=== PATIENT | female | born 1995 | race Caucasian/White ===

== ENCOUNTER 2021-04-23 17:26 | Observation (INO) | payer OTHER, SELFPAY ==
[2021-04-23] VITALS (7 sets, daily range): BP systolic 114–131; BP diastolic 69–80; PULSE 83–102; TEMP 36.3; BMI 34.9
--- NOTE | 2021-04-24 20:36 | PM.OBTRLD ---
OB - Triage/Final Diagnosis Visit Information Comments/Additional reasons for admission: I have assessed the risk for this patient, Rachana James, and determined that she would benefit from observation care. Final Diagnosis (1) False labor after 37 completed weeks of gestation: Code(s): O47.1 - False labor at or after 37 completed weeks of gestation Status: Acute
== END 2021-04-23 20:10 | disposition home or self-care (01) ==
PROVIDERS: Admitting Provider Obstetrics & Gynecology; Visit Provider Obstetrics & Gynecology
DX: O47.1 False labor at or after 37 completed weeks of gestation (principal); Z3A.38 38 weeks gestation of pregnancy
CPT/HCPCS: G0378; G0379

== ENCOUNTER 2021-04-26 19:30 | Inpatient (IN) | payer OTHER, SELFPAY ==
[2021-04-26] VITALS (8 sets, daily range): BP systolic 111–128; BP diastolic 55–87; PULSE 85–107; BMI 35.7
--- NOTE | 2021-04-26 19:30 | LDADM ---
This patient, Rachana James, was admitted to Labor/Delivery/Recovery 103 on 04/26/21 at 19:30. Plans for labor, pain management and were discussed with patient. Patient/family oriented to hospital policies and general routines including ID bracelet, bed and alarms, visiting hours, pain management, procedures, bathroom and other care routines, personal items, smoking policy, room service/diet and guest tray routines, infant security routines, and visiting hours. Patient/Family are encouraged to report perceived risks to care and to ask questions if they do not understand what they are told or what they should do. See OBIX for further documentation.
--- NOTE | 2021-04-26 20:50 | PM.IMHP ---
H&P: HPI History of Present Illness Date/Time: 04/26/21 20:41 Rachana is a 25yo @ 38.4wks (LATONIA 05[birth year]) who presented to clinic for routine care. She had been seen on L&D on 04/23/21 for rule out labor was found to be 2cm. In clinic, she was having decreased movement with regular contractions. She was 2/100/-2. No LOF, but had been having some vaginal spotting. On arrival to L&D, she was found to be 3.5/100/-2. Baby has good reactivity but was noted to have a couple variables and late decelerations. Her is complicated by: - Postural orthostatic tachycardia syndrome - Elevated glucola; normal 3hr OGTT - CMV non-immune - Mild anemia on iron daily Chief Complaint: contractions; decreased movement Review of Systems Review of Systems: All systems reviewed & are unremarkable except as noted in HPI and below (HPI) [facility] Family History Family History Mother Heart disease Breast cancer Father Heart disease Social History Social History Substance use: never Spiritual care concerns: No Meds Home Medications and Allergies Home Medications Medication Instructions Recorded Confirmed Type PNV cmb#95-ferrous fumarate-FA 1 tablet PO DAILY 04/17/21 04/17/21 History [] ferrous sulfate [Iron (ferrous 325 mg PO DAILY 04/17/21 04/17/21 History sulfate)] Allergies Allergy/AdvReac Type Severity Reaction Status Date / Time No Known Allergies Allergy Unknown Unverified 04/13/19 17:26 Exam Const: General: cooperative, healthy appearing, comfortable and no acute distress Resp: Effort & Inspection: normal respiratory effort Cardio: Rate: regular rate GI: Inspection: non-distended GI Palp: No abdominal tenderness and Yes Soft to palpation : Other: FHT's: 130's/mod giorgio/ + accels/ occasional variable/late decel -- cat 2, overall reassuring TOCO: ctx's q 1-4min Cervix: 3.5/100/-2 Membranes: intact Presentation: cephalic Skin: General skin exam: normal color Neuro: General: patient oriented x3 Psych: Appearance: grossly normal Affect: normal affect Attitude: cooperative Assessment and Plan Assessment and plan (1) Active labor at term: Status: Acute Additional Plan - Admit to L&D for labor - Continuous monitoring; currently reassuring - Actively theresa currently; if contractions space out, will start low dose pitocin - Plan for AROM in AM - Anesthesia consult PRN pain - GBS negative
--- NOTE | 2021-04-26 20:50 | WPDHPUPDATE1 ---
History and Physical Update Update Date/Time: 04/26/21 20:50 History and Physical has been reviewed, including an updated exam of the patient. There are NO changes in the patient's condition. Risks, benefits, and alternatives have been discussed and questions answered. Patient agrees to proceed with procedure.
[2021-04-26 21:06] LABS: Basophils Percent Auto 0.3 % (0.2-1.2); Eosinophils Absolute Auto 0.1 K/mm3 (0-0.3); Eosinophils Percent Auto 0.5 % (0-4.4); Hematocrit 36.6 % (37.0-47.0); Hemoglobin 12.5 g/dL (12.0-15.0); Immature Granulocyte Absolute 0.06 K/mm3 (0.00-0.031); Immature Granulocyte Percent A 0.5 % (0-0.5); Lymphocytes Absolute Auto 1.93 K/mm3 (0.9-3.2); Lymphocytes Percent Auto 16.9 % (18.3-44.2); Mean Corpuscular HGB Conc 34.2 g/dl (32-36); Mean Corpuscular Hemoglobin 29.3 pg (26-34); Mean Corpuscular Volume 85.9 fl (80-100); Mean Platelet Volume 12.3 fl (7.4-10.4); Monocytes Absolute Auto 0.9 K/mm3 (0.1-0.6); Monocytes Percent Auto 7.5 % (2.6-8.5); Neutrophils Absolute Auto 8.5 K/mm3 (1.3-6.7); Neutrophils Percent Auto 74.3 % (45.5-73.1); Platelet Count Result 159 k/mm3 (150-375); Red Blood Count 4.26 M/mm3 (4.2-5.4); Red Cell Distribution Width 14.1 % (11.5-14.5); White Blood Count 11.5 K/mm3 (4.5-10.0)
[2021-04-27] VITALS (141 sets, daily range): BP systolic 80–151; BP diastolic 30–129; PULSE 32–141; RESP 16–81; TEMP 36.2–36.8; O2SAT 77–100
[2021-04-27] MEDS: OXYTOCIN 30 UNITS/NS 500 ML 30 UNITS/500 ML BAG IV CONT (03:45)
[2021-04-27] MEDS: LACTATED RINGERS 1,000 ML 125 ML IV CONT ×2 (03:45→05:17)
--- NOTE | 2021-04-27 04:36 | WPDANESEPPF ---
Anes - Initial Pre Proc Eval Procedure: labor epidural Date/Time: 04/27/21 04:36 Surgeon: Viky Mason MD Pre Op Diagnosis: labor pain Pre Op Diagnosis: Contractions Patient Data Age: 25 Gender: F Height: 1.7 m Weight: 103.6 kg Last Vital Signs Temp 36.8 C 04/27/21 03:09 Pulse 76 04/27/21 04:31 Resp 16 04/27/21 03:09 BP 118/70 04/27/21 04:31 Allergies Allergy/AdvReac Type Severity Reaction Status Date / Time No Known Allergies Allergy Unknown Unverified 04/13/19 17:26 Home Medications Medication Instructions Recorded Confirmed Type PNV cmb#95-ferrous fumarate-FA 1 tablet PO DAILY 04/17/21 04/17/21 History [] ferrous sulfate [Iron (ferrous 325 mg PO DAILY 04/17/21 04/17/21 History sulfate)] Laboratory Tests 04/26/21 04/26/21 04/26/21 20:52 20:52 20:52 WBC 11.5 K/mm3 H K/mm3 (4.5-10.0) RBC 4.26 M/mm3 M/mm3 (4.2-5.4) Hgb 12.5 g/dL g/dL (12.0-15.0) Hct 36.6 % L % (37.0-47.0) MCV 85.9 fl fl (80-100) MCH 29.3 pg pg (26-34) MCHC 34.2 g/dl g/dl (32-36) RDW 14.1 % % (11.5-14.5) Plt Count 159 k/mm3 k/mm3 (150-375) MPV 12.3 fl H fl (7.4-10.4) Immature Gran % (Auto) 0.5 % % (0-0.5) Neut % (Auto) 74.3 % H % (45.5-73.1) Lymph % (Auto) 16.9 % L % (18.3-44.2) [place] % (Auto) 7.5 % % (2.6-8.5) Eos % (Auto) 0.5 % % (0-4.4) Baso % (Auto) 0.3 % % (0.2-1.2) Lymph # (Auto) 1.93 K/mm3 K/mm3 (0.9-3.2) [place] # (Auto) 0.9 K/mm3 H K/mm3 (0.1-0.6) Eos # (Auto) 0.1 K/mm3 K/mm3 (0-0.3) Baso # (Auto) 0.0 K/mm3 K/mm3 (0.0-0.1) Abs Immat Gran (auto) 0.06 K/mm3 H K/mm3 (0.00-0.031) Absolute Neuts (auto) 8.5 K/mm3 H K/mm3 (1.3-6.7) Absolute Nucleated RBC 0.0 K/mm3 K/mm3 (0.0-0.012) Nucleated RBC % 0.0 % % (0.0-0.2) RPR Pending Blood Type O Positive Antibody Screen Negative Patient hx anesthesia problems: none Family hx anesthesia problems: none Results Review: All pre-operative results and documents have been reviewed as part of the pre-operative evaluation. [facility] Past Medical History Medical History (Updated 04/27/21 @ 04:37 by Chaitanya Castillo DO) POTS (postural orthostatic tachycardia syndrome) Family History Family History Mother Heart disease Breast cancer Father Heart disease Social History Social History Smoking status: Former smoker Substance use: never Spiritual care concerns: No Anes - Eval Final PreProcedure Day of Procedure 04/27/21 04:36 Patient weight: obese ASA classification: III Anesthesia type and monitoring: regional epidural and standard monitoring Results Review: All pre-operative results and documents have been reviewed as part of the pre-operative evaluation. Informed Consent: The patient's anesthetic plan and its attendant risks and benefits were discussed with the patient/family/POA. Questions were solicited and answers provided to the satisfaction of the patient/family/POA.
--- NOTE | 2021-04-27 07:14 | PM.OBPNLAB ---
Pain Control Date/time seen: 04/27/21 07:14 Pain control: epidural Pelvic Exam Dilation (cm): 4 Effacement (%): 100 station: -2 Amniotic membrane status: Ruptured (AROM, clear 0710 (possible SROM 0418)) Contractions Monitor mode: Internal (placed this exam) Contraction frequency: 3 Contraction pattern: Regular Status status: Category ll Comments: variables Assessment and Plan Pitocin rate (mU/min): 6 Assessment: induction ongoing Plan: continuous present management Comments: amnio infusion if variables continue
[2021-04-27] MEDS: SODIUM CHLORIDE 0.9% IV 300 ML 600 ML I-UTERINE (07:48)
--- NOTE | 2021-04-27 08:54 | P.PCNOB_ITS ---
OB - Delivery Note Procedure Delivery date: 04/27/21 Intrapartal events: Deceleration Delivery augmentation: rupture of membranes and pitocin Delivery monitor: external FHT and internal uterine Route of delivery: Laceration Description: None Quantitative Blood Loss (ml): 250 Anesthesia type: Epidural Disposition: floor [place] Baby Date of : 04/27/21 Time of : 08:44 Weeks of gestation at delivery: 38 (.5) Infant gender: Male Weight (pounds): 7 Weight (ounces): 9 presentation: vertex position: Right Occiput Anterior Placenta delivery description: Expressed cord vessel description: 3 Vessels, Nuchal Cord and Delayed Cord Clamping score one minute: 8 score five minutes: 9 Narrative: Rachana rapidly progressed from 4 to complete dilation in less than an hour. Tachysystole and significant variable decelerations were noted. We placed oxygen and put her on her right side and began pushing, baby tolerated it well. With good maternal effort she pushed for approximately 40 minutes. She delivered the head over intact perineum. A nuchal cord was noted but delivered through. The infant's shoulders and body were delivered without complications. The infant had spontaneous cry and was immediately placed skin to skin. Delayed cord clamping was performed. The umbilical cord was then clamped and cut. With Pitocin running and gentle downward traction on the cord, the placenta delivered without complications. Bimanual massage was performed and good tone with minimal bleeding was noted. The patient was examined and no lacerations were noted. Sponge, lap, and instrument counts were correct at the end the procedure. Mom and baby were left bonding in the birthing suite in a stable condition.
[2021-04-27] MEDS: OXYTOCIN 30 UNITS/NS 500 ML 30 UNITS/500 ML BAG 125 UNITS IV CONT (09:11)
--- NOTE | 2021-04-27 11:10 | PC.NURSE ---
Patient transferred to post room #280 via 1110. Support person present. Oriented to unit, room, information board, rooming in, admission packet and security measures. Patient verbalizes understanding.
[2021-04-27] MEDS: IBUPROFEN 600 MG TABLET PO ×2 (11:45→21:44)
[2021-04-27 13:13] LABS: Rapid Plasma Reagin Non-Reactive (NonReactive)
[2021-04-27] MEDS: ACETAMINOPHEN 325 MG TABLET 650 MG PO (14:12)
[2021-04-28] MEDS: ACETAMINOPHEN 325 MG TABLET 650 MG PO ×2 (01:30→08:37)
[2021-04-28 04:15] VITALS: BP 116/58; PULSE 77; RESP 18; TEMP 36.6; O2SAT 100
[2021-04-28] MEDS: IBUPROFEN 600 MG TABLET PO ×2 (05:56→16:03)
[2021-04-28 08:25] VITALS: BP 109/64; PULSE 81; RESP 16; TEMP 36.6; O2SAT 99
[2021-04-28] MEDS: TETANUS,DIPHTHERIA,AC PERTUSSIS ADULT (0.5 ML) BOOSTRIX IM (08:37)
--- NOTE | 2021-04-28 09:20 | P.PNOB_ITS ---
OB - PN: Subj Subjective Date/time seen: 04/28/21 09:20 PPD#1 Rachana reports doing well. Her pain is controlled with PO pain meds. 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 She has tolerated regular diet, voided, passed gas and ambulated. She is bottle feeding. She would like to go home tomorrow. She would like her son circumcised today. She denies fever, chills, CP, SOB, GONZALEZ, vision changes, fever, chills, palpitations or dizziness. OB - PN: Obj Data Labs CBC & Chem 7: 04/26/21 20:52 Labs: Laboratory Results - last 24 hr 04/26/21 20:52 RPR Non-reactive OB - PN A/P Assessment and Plan (1) Normal vaginal delivery of first : Code(s): O80 - Encounter for full-term uncomplicated delivery Status: Acute Plan day: 1 Plan: routine care and discharge home (tomorrow AM) Comments: - F/u 4wks - ER return precautions: fever, bleeding, HTN, n/v/abd pain - Pelvic rest, take meds as prescribed Time Spent With Patient Time: Total time spent is greater than 50% in coordination of care (as documented) at patient's floor/unit and/or counseling patient: Review of Systems Review of Systems: All systems reviewed & are unremarkable except as noted in HPI and below (HPI) Exam Const: General: cooperative, healthy appearing, comfortable and no acute distress Resp: Effort & Inspection: normal respiratory effort Auscultation: clear to auscultation bilaterally Cardio: Rate: regular rate GI: Inspection: normal to inspection GI Palp: No abdominal tenderness and Yes Soft to palpation Auscultation: normal bowel sounds : Other: fundus firm Skin: General skin exam: normal color Neuro: General: patient oriented x3 Extrem: General: normal to inspection Psych: Appearance: grossly normal Affect: normal affect Attitude: cooperative
--- NOTE | 2021-04-28 12:34 | WPDANLDPN2 ---
Anes-Prog Note L&D Date/Time: 04/28/21 12:34 Comfortable throughout: labor Neuraxial method: epidural Epidural/Spinal procedure site: clean & non-tender Neuro status: Neuro function grossly intact. Cardiovascular status: normal Respiratory status: normal Airway patency: baseline Mental status: baseline Post-Op hydration status: normal Vital Signs: Last Vital Signs Temp 36.6 C 04/28/21 08:25 Pulse 81 04/28/21 08:25 Resp 16 04/28/21 08:25 BP 109/64 04/28/21 08:25 Pulse Ox 99 04/28/21 08:25 Pain score (VAS): 07/24 Post-procedural complaints: none Patient feedback: Patient satisfied with anesthetic care.
[2021-04-28] MEDS: DOCUSATE SODIUM 100 MG CAPSULE PO (16:04)
[2021-04-28 20:05] VITALS: BP 120/69; PULSE 82; RESP 18; TEMP 36.6; O2SAT 99
[2021-04-29] MEDS: IBUPROFEN 600 MG TABLET PO ×2 (01:04→10:24)
[2021-04-29] MEDS: ACETAMINOPHEN 325 MG TABLET 650 MG PO (01:06)
[2021-04-29 07:00] VITALS: BP 127/89; PULSE 75; RESP 16; TEMP 36.5; O2SAT 98
[2021-04-29] MEDS: DOCUSATE SODIUM 100 MG CAPSULE PO (10:25)
--- NOTE | 2021-04-29 10:32 | PC.NURSE ---
Patient viewed the discharge video Mother & Baby Care, The First Two Weeks . Patient was given the opportunity and encouraged to ask questions. Patient verbalized understanding of information shared and has been given the mother/baby guide for home reference.
[2021-05-01 08:58] VITALS: BP 137/87; PULSE 91; RESP 20; TEMP 37.1; O2SAT 99
--- NOTE | 2021-05-05 07:00 | PM.OBDSVD ---
DS: Admitting Diagnosis Discharge Date 04/29/21 Admitting Diagnosis active labor DS: Discharge Diagnosis Discharge Diagnosis (1) Normal vaginal delivery of first : Code(s): O80 - Encounter for full-term uncomplicated delivery Status: Acute OB - DS: Summary OB Procedures : Ultrasound OB Procedures Intrapartum: Spontaneous Vag Delivery OB Procedures: : None Peripartum Data Infant Delivery Method: Natural Vaginal Laceration Description: None complications: none 1: Gender: Male Disposition of : home Status at Discharge Functional status at discharge: independent ambulation Overall status at discharge: patient is back to baseline Time Spent with Patient Time attestation: Total time spent providing and/or coordinating discharge services: Time spent: Less than 30 minutes Exam Const: General: cooperative, healthy appearing, comfortable and no acute distress Resp: Effort & Inspection: normal respiratory effort Auscultation: clear to auscultation bilaterally Cardio: Rate: regular rate GI: Inspection: normal to inspection and non-distended GI Palp: No abdominal tenderness and Yes Soft to palpation Auscultation: normal bowel sounds : Other: fundus firm Skin: General skin exam: normal color Neuro: General: patient oriented x3 Extrem: General: normal to inspection Psych: Appearance: grossly normal Affect: normal affect Attitude: cooperative Discharge Plan Discharge Attending physician on discharge: Viky Mason Consulting providers: Chaitanya Castillo Discharging Clinician: Viky Mason Anticipated Discharge Date/Time: 04/29/21 08:00 Patient Disposition: Home, Self-Care Activity: pelvic rest Diet: regular Discharge Instructions: Education: Mom and Baby Guide Given to: Mother Follow-Up: Call your delivering provider's office for an appointment to be seen in: 4 Weeks Mom and baby should come to the [facility] for the follow-up appointment. Appointment Date/Time: Saturday, May 01, 2021 at 9:00 a.m. What to expect at your follow-up visit: Blood Pressure Check Physical Assessment Call [phone] if you are unable to keep your appointment time. BREAST CARE: * Wear a snug supportive bra. * For engorgement discomfort: Bottle Feeding: * May apply ice packs EPISIOTOMY/PERINEAL CARE: * Until bleeding stops, use your kirill bottle after urinating * Change your pad frequently throughout the day * You may take sitz baths several times a day (fill your bathtub with warm water and soak for 20 minutes.) Do NOT bathe in the water * No tub baths until seen by your physician - You may shower ACTIVITY: * Rest as much as possible. * Do not exercise or lift anything heavier than your baby (such as laundry or other children.) * Avoid stairs or driving as much as possible. * Do not put anything into the vagina. No douching, tampons, or sexual activity until seen by physician. NOTIFY PHYSICIAN IF YOU HAVE ANY QUESTIONS OR IF ANY OF THE FOLLOWING SYMPTOMS OCCUR: * If your vaginal bleeding becomes foul smelling. * If your vaginal bleeding becomes more heavy than a period or if your bleeding changes from pink to bright red. However, you may pass an occasional walnut-sized clot once or twice for the first week . * If you experience a sharp, shooting pain in you calves. DIET: * Eat regular, well-balanced meals. * Drink plenty of fluids daily. Stand Alone Forms: General Discharge Information Follow-up/Referrals: Viky Mason MD [Physician] - 4 Weeks Discharge Medications: New acetaminophen [Mapap (acetaminophen)] 325 mg Tablet 650 mg PO Q6H PRN (Reason: Mild Pain (1-3) Or Headache) 10 Days Qty: 60 RF: 0 ibuprofen 600 mg Tablet 600 mg PO Q6H PRN (Reason: Cramping) 10 Days Qty: 40 RF: 0 Discontinued ferrous chavez
== END 2021-04-29 13:02 | disposition home or self-care (01) | DRG 560 ==
LOC: ANHLDR 04-27 09:57 → ANHOB2 04-27 11:32
PROVIDERS: Admitting Provider Obstetrics & Gynecology; Visit Provider Obstetrics & Gynecology
DX: O69.81X0 Labor and delivery complicated by cord around neck, without compression, not applicable or unspecified (principal); Z37.0 Single live birth; Z3A.38 38 weeks gestation of pregnancy; O36.8330 Maternal care for abnormalities of the fetal heart rate or rhythm, third trimester, not applicable or unspecified; O99.42 Diseases of the circulatory system complicating childbirth; I49.8 Other specified cardiac arrhythmias; Z23 Encounter for immunization; O99.214 Obesity complicating childbirth; E66.9 Obesity, unspecified
CPT/HCPCS: 36415; 84112; 85025; 86592; 86850; 86900; 86901; 90471; 90653; 90715; A9270; G0008; J2590; J2795; J7030; J7120